=== PATIENT | male | born 1940 | race Two or more races ===

== ENCOUNTER 2018-11-08 09:23 | Outpatient (CLI) | payer OTHER | END 2018-11-08 09:51 | disposition home or self-care (01) | LOC: LAB 09:23 | DX: E11.9 Type 2 diabetes mellitus without complications (principal); K43.2 Incisional hernia without obstruction or gangrene; R10.84 Generalized abdominal pain; I10 Essential (primary) hypertension ==

== ENCOUNTER 2018-11-08 11:08 | Inpatient (IN) | payer OTHER ==
[~2018-11-08] VITALS: Ht 172.7 cm; Wt 98.0 kg
[2018-11-24] MEDS ORDERED: SYNTHROID75 MCG PO (09:10)
[2018-11-24] MEDS ORDERED: COZAAR100 MG PO (09:11)
[2018-11-24] MEDS ORDERED: CARDURA1 MG PO (09:11)
[2018-11-24] MEDS ORDERED: PLAVIX75 MG PO (09:11)
[2018-11-24] MEDS ORDERED: ZOCOR20 MG PO (09:11)
[2018-11-24] MEDS ORDERED: TENORMIN50 M1 PO (09:11)
[2018-11-24] MEDS ORDERED: FENOFIBRATE134 MG PO (09:12)
[2018-11-24] MEDS ORDERED: ASA81 MG PO (09:12)
[2018-11-24] MEDS ORDERED: FOLIC ACID1 MG PO (09:13)
[2018-11-24] MEDS ORDERED: CALCIUM500 M2 PO (09:13)
[2018-11-24] MEDS ORDERED: FERRETTS325 MG PO (09:13)
[2018-12-31] MEDS ORDERED: NEURONTIN300 MG PO (11:22)
[2018-12-31] MEDS ORDERED: MIRALAX17 GM PO (11:22)
== END 2018-12-31 14:42 | DRG 330 ==
LOC: SURG 11-24 07:30 → SURH 12-22 04:59 → O/R 12-22 04:59 → SURG 12-22 07:00 → SURH 12-22 15:08
PROVIDERS: Surgery; ADMIT Surgery
PROC: 0DJD8ZZ Inspection of Lower Intestinal Tract, Via Natural or Artificial Opening Endoscopic (ICD-10-PCS; 2018-12-22)
PROC: 0WUF0JZ Supplement Abdominal Wall with Synthetic Substitute, Open Approach (ICD-10-PCS; 2018-12-22)
PROC: 0DNW0ZZ Release Peritoneum, Open Approach (ICD-10-PCS; 2018-12-22)
PROC: 0KXL0Z6 Transfer Left Abdomen Muscle, Transverse Rectus Abdominis Myocutaneous Flap, Open Approach (ICD-10-PCS; 2018-12-22)
PROC: 0KXK0Z6 Transfer Right Abdomen Muscle, Transverse Rectus Abdominis Myocutaneous Flap, Open Approach (ICD-10-PCS; 2018-12-22)
PROC: 0DQN0ZZ Repair Sigmoid Colon, Open Approach (ICD-10-PCS; principal; 2018-12-22 07:00)
PROC: 0DTN0ZZ Resection of Sigmoid Colon, Open Approach (ICD-10-PCS; 2018-12-22 07:00)
PROC: 4A033R1 Measurement of Arterial Saturation, Peripheral, Percutaneous Approach (ICD-10-PCS; 2018-12-24)
PROC: 4A12X4Z Monitoring of Cardiac Electrical Activity, External Approach (ICD-10-PCS; 2018-12-24)
PROC: B32TYZZ Computerized Tomography (CT Scan) of Left Pulmonary Artery using Other Contrast (ICD-10-PCS; 2018-12-24)
PROC: B32SYZZ Computerized Tomography (CT Scan) of Right Pulmonary Artery using Other Contrast (ICD-10-PCS; 2018-12-24)
PROC: BB24ZZZ Computerized Tomography (CT Scan) of Bilateral Lungs (ICD-10-PCS; 2018-12-24)
PROC: 3E0F7GC Introduction of Other Therapeutic Substance into Respiratory Tract, Via Natural or Artificial Opening (ICD-10-PCS; 2018-12-25)
PROC: BB24Y0Z Computerized Tomography (CT Scan) of Bilateral Lungs using Other Contrast, Unenhanced and Enhanced (ICD-10-PCS; 2018-12-30)
DX: Z43.3 Encounter for attention to colostomy (principal); K57.20 Diverticulitis of large intestine with perforation and abscess without bleeding; K43.0 Incisional hernia with obstruction, without gangrene; K42.0 Umbilical hernia with obstruction, without gangrene; M96.89 Other intraoperative and postprocedural complications and disorders of the musculoskeletal system; J95.89 Other postprocedural complications and disorders of respiratory system, not elsewhere classified; J98.11 Atelectasis; I97.191 Other postprocedural cardiac functional disturbances following other surgery; K66.0 Peritoneal adhesions (postprocedural) (postinfection); I25.2 Old myocardial infarction; Z95.1 Presence of aortocoronary bypass graft; Z85.048 Personal history of other malignant neoplasm of rectum, rectosigmoid junction, and anus; N99.0 Postprocedural (acute) (chronic) kidney failure; I11.9 Hypertensive heart disease without heart failure; K43.5 Parastomal hernia without obstruction or gangrene; R09.02 Hypoxemia
CPT/HCPCS: 71275

== ENCOUNTER 2018-12-20 08:35 | Outpatient (CLI) | payer OTHER ==
[~2018-12-20 08:35] MED LIST: ASA81 MG PO; CALCIUM500 M2 PO; CARDURA1 MG PO; COZAAR100 MG PO; FENOFIBRATE134 MG PO; FERRETTS325 MG PO; FOLIC ACID1 MG PO; PLAVIX75 MG PO; SYNTHROID75 MCG PO; TENORMIN50 M1 PO; ZOCOR20 MG PO
== END 2018-12-20 08:52 | disposition home or self-care (01) ==
LOC: LAB 08:35
DX: E11.9 Type 2 diabetes mellitus without complications (principal); K43.2 Incisional hernia without obstruction or gangrene; R10.84 Generalized abdominal pain; I10 Essential (primary) hypertension

== ENCOUNTER 2022-05-21 06:08 | Emergency (ER) | payer OTHER ==
[~2022-05-21] VITALS: Ht 172.7 cm; Wt 90.7 kg
[~2022-05-21 06:08] MED LIST changes: +MIRALAX17 GM PO; +NEURONTIN300 MG PO
== END 2022-05-21 12:18 | disposition home or self-care (01) ==
LOC: ER 06:08
DX: R10.32 Left lower quadrant pain (principal); K57.32 Diverticulitis of large intestine without perforation or abscess without bleeding; K80.20 Calculus of gallbladder without cholecystitis without obstruction